=== PATIENT | female | born 1960 | race Caucasian/White ===

== ENCOUNTER 2022-12-29 07:24 | Day surgery (SDC) | payer OTHER, SELFPAY ==
[2022-12-29 07:00] VITALS: BMI 34.3
[2022-12-29 07:52] VITALS: BP 132/65; PULSE 72; RESP 18; TEMP 36.1; O2SAT 98
--- NOTE | 2022-12-29 07:56 | HO.ANESPROP2 ---
[facility] Past Medical History Medical History GERD (gastroesophageal reflux disease) Hypothyroidism Broken toe Migraines Seasonal allergies Surgical History Surgical History Previous section H/O breast biopsy H/O colonoscopy History of Problems with Anesthesia: No Social History Social History Patient Tobacco Use Status: Former Tobacco user Quit Date: 2021 Tobacco use type: Cigarette Are you DNR?: No Advance Directives: No Advance Directives Information Provided: Yes Patient : No Meds Allergies Allergy/AdvReac Type Severity Reaction Status Date / Time No Known Allergies Allergy Verified 12/28/22 13:09 Active Medications: Current Medications Lactated Ringer's (Lr) 1,000 mls @ 50 mls/hr IVCONT .Q20H REAL Sodium Biphosphate/Sodium Phosphate (Sodium Phosphate,[place]-Dibasic 133 Ml Enema) [address] ONCE PRN PRN Reason: Poor Colonoscopy Prep Results Home Medications Medication Instructions Recorded Confirmed Last Taken Type levothyroxine 50 mcg tablet 50 mcg PO DAILY 12/28/22 12/28/22 Unknown History multivitamin 12/28/22 Unknown History omeprazole 12/28/22 Unknown History sumatriptan succinate 50 mg tablet PO 12/28/22 Unknown History Exam Exam Date and Time: December 29, 2022 0756 Height,Weight and Vital Signs: Height 5 ft 5 in Weight 93.44 kg Last Vital Signs Temp 97 F 12/29/22 07:52 Pulse 72 12/29/22 07:52 Resp 18 12/29/22 07:52 BP 132/65 12/29/22 07:52 Pulse Ox 98 12/29/22 07:52 O2 Del Method Room Air 12/29/22 07:52 Airway Mallampati Class: II TM Dist: >3cm Neck ROM: Full Loose/Missing/Broken Teeth: No Heart: RRR Lungs: CTA Assessment and Plan Assessment Anesthesia Assessment: Anesthesia Plan Discussed and Chart Reviewed Final Anesthetic Review History of Problems with Anesthesia: No NPO: Yes ASA Class: II Final Preanesthetic Review: Meds/Allgs Chart Reviewed, Consent Obtained/Reviewed and Anes Risks/Benef Reviewed Patient Risk: Low Procedure Risk: Intermediate Anesthetic Plan Anesthetic Plan: MAC: Disposition: Standard PACU
[2022-12-29] MEDS: Lactated Ringers 1,000 ML 50 ML IVCONT (08:03)
[2022-12-29 09:40] VITALS: BP 111/63; PULSE 73; RESP 18; TEMP 36.2; O2SAT 99
--- NOTE | 2022-12-29 09:46 | P.BOP_ITS ---
Brief Operative Note Date of Service: 12/29/22 Pre-op diagnosis: GERD, Screening Post-op diagnosis: other (Same, Hiatal hernia, Gastric polyps, Colon polyp) Procedure: EGD with biopsies, Colonoscopy to the cecum and TI with bx/removal of polyp Surgeon: Zoltan Everett Anesthesia: MAC Was an Respiratory Medicine Physician used for this Procedure?: No Estimated blood loss (mL): 2.0 Pathology: other (A. EG Junction at 35cm B. Gastric polyps C. Colon polyp at 20cm) Condition: stable Disposition: PACU
[2022-12-29 09:55] VITALS: BP 127/66; PULSE 70; RESP 16; TEMP 36.2; O2SAT 98
--- NOTE | 2022-12-29 10:34 | OP_ITS ---
DATE OF SERVICE: 12/29/2022 SURGEON: Zoltan Everett MD INDICATIONS: The patient presents for evaluation of gastroesophageal reflux and colorectal cancer screening. Full consent has been obtained from her for this, including risks of bleeding and perforation. PREOPERATIVE DIAGNOSIS: Gastroesophageal reflux and colorectal cancer screening. POSTOPERATIVE DIAGNOSIS: PROCEDURE PERFORMED: Esophagogastroduodenoscopy with biopsies, and colonoscopy to the cecum and terminal ileum with biopsy and removal of polyp. ESTIMATED BLOOD LOSS: COMPLICATIONS: ANESTHESIA: Monitored anesthesia care. ASSISTANTS: SPECIMENS: POSTOPERATIVE DIAGNOSES: Gastroesophageal reflux and colorectal cancer screening, hiatal hernia, gastric polyps, rule out Montiel esophagus, colon polyp, sigmoid diverticulosis, small internal hemorrhoids. DESCRIPTION OF PROCEDURE: The patient was placed in the left lateral decubitus position. The Olympus video gastroscope was passed in the posterior oropharynx and upper esophagus under direct vision. The scope was passed slowly into the distal esophagus. The gastroesophageal junction appeared at 35 cm. There was some slight irregularity consistent with reflux and possible small, less than 1 cm areas of Montiel mucosa. There was no esophagitis nor any lesions. The scope entered the stomach there was a small hiatal hernia. The scope was advanced to the pylorus, and the duodenum was cannulated to the descending portion. The duodenum including the bulb appeared normal without mass or ulceration. The scope was withdrawn back in the stomach. The gastric antrum and body appeared normal with good peristalsis. The scope was retroflexed visualizing the proximal stomach carefully, which appeared normal, without any sign of mass or ulceration. However, there were multiple hyperplastic appearing gastric polyps in the proximal stomach. Several of these were biopsied. The scope was withdrawn back in the esophagus. Biopsies were obtained at the EG junction at 35 cm. Proximal to this, the esophageal mucosa appeared normal. The scope was withdrawn from the patient. She was turned around for the colonoscopy. The digital rectal exam revealed no abnormalities. The Olympus video pediatric colonoscope was entered into the rectum and advanced easily to the cecum. Once in the cecum, I did identify normal-appearing cecal pouch with appendiceal orifice and a normal-appearing ileocecal valve. The terminal ileum was cannulated and appeared normal. Scope withdrawn back in the colon. The entire cecum and ileocecal valve appeared normal. The scope was then slowly withdrawn assessing all mucosal surfaces carefully. Preparation was excellent. At 20 cm was a flat, approximately 4 mm polyp, which was biopsied and completely removed with a cold biopsy forceps. I did not visualize any other polyps, colitis, nor angiodysplasia. There was a mild amount of sigmoid diverticulosis. In the rectum, the scope was retroflexed visualizing small internal hemorrhoids, but no other pathology. The rectal mucosa appeared normal. The scope was straightened and withdrawn from the patient. She tolerated both procedures well and was returned to the recovery area in stable condition. IMPRESSION: 1. Hiatal hernia, gastroesophageal reflux, rule out Montiel esophagus. 2. Gastric polyps. 3. Colon polyp. 4. Mild diverticulosis. 5. Small internal hemorrhoids. PLAN: The results of the biopsies will be checked. If the colon polyp is a tubular adenoma, I would recommend a followup coloscopy in 5 years. If it is only hyperplastic, I would recommend a followup colonoscopy in 10 years. She will continue her omeprazole for her reflux symptoms. If that happens to be Montiel esophagus, I would recommend a repeat upper endoscopy in 3 years for surveillance in that regard. She was advised not to use any aspirin and NSAIDs for 1 week. She will otherwise see me on a p.r.n. basis. MD YAEL Hanna/HAMLET / [phone]
== END 2022-12-29 10:34 | disposition home or self-care (01) ==
PROVIDERS: PCP Internal Medicine; Visit Provider Internal Medicine
PROC: (CPT 45380; principal; 2022-12-29 08:30)
DX: Z12.11 Encounter for screening for malignant neoplasm of colon (principal); K63.5 Polyp of colon; K57.30 Diverticulosis of large intestine without perforation or abscess without bleeding; K64.8 Other hemorrhoids; K46.9 Unspecified abdominal hernia without obstruction or gangrene; K31.7 Polyp of stomach and duodenum; K21.9 Gastro-esophageal reflux disease without esophagitis; E03.9 Hypothyroidism, unspecified; Z79.899 Other long term (current) drug therapy; Z87.891 Personal history of nicotine dependence
CPT/HCPCS: 45380; 43239; 88305; 88342